=== PATIENT | female | born 1970 | race Caucasian/White ===

== ENCOUNTER 2016-08-20 09:36 | Emergency (ER) | payer MEDICAID ==
[~2016-08-20] VITALS: Ht 165.1 cm; Wt 92.0 kg
[~2016-08-20 09:36] MED LIST: BACT800T5 PO; CEPH500 PO; CEPH500T PO
[2016-08-20 09:37] VITALS: BP 150/80; PULSE 87; RESP 16; TEMP 97.7; O2SAT 98
--- NOTE | 2016-08-20 09:47 | PD ---
HPI . Right ankle cellulitis for 2-3 days Chief Complaint: Skin Problem Time Seen by Provider: 09:47 Travel History International Travel<30 days: No Contact w/Intl Traveler<30days: No Traveled to known affect area: No History of Present Illness HPI 45-year-old female with no past medical history here with complaints of right ankle cellulitis for 2-3 days. Patient tells me she has had intermittent cellulitis here and there in her life and decided to come into the emergency department for further evaluation. She is complaining of a right ankle cellulitis on the medial aspect of his been present for 2-3 days. She thinks it 's possible something may have bitten her, but is uncertain. She denies any fever but admits to intermittent chills. She has no other complaints. She is ambulatory. PFSH Past Medical History Cancer: No Cardiovascular Problems: No Cerebrovascular Accident: Yes Diminished Hearing: No Endocrine: No Genitourinary: No Immune Disorder: No Musculoskeletal: Yes Neurologic: No Psychiatric: No Reproductive: Yes Respiratory: No Integumentary: Yes (CELLULITIS) ?: Not LMP: 3 weeks ago : 2 Para: 2 Past Surgical History Abdominal Surgery: Yes (APPENDECTOMY) Cardiac Surgery: No Ear Surgery: No Endocrine Surgery: No Eye Surgery: No Genitourinary Surgery: No Gynecologic Surgery: No Oral Surgery: No Thoracic Surgery: No Tonsillectomy: Yes Other Surgery: Yes Social History Alcohol Use: No Tobacco Use: Yes Substance Use: No Allergies-Medications (Allergen,Severity, Reaction): Coded Allergies: No Known Allergies (Verified , 08/20/16) Reported Meds & Prescriptions Reported Meds & Active Scripts Active Bactrim DS (Sulfamethoxazole-Trimethoprim) 800-160 Mg Tab 1 Tab PO BID Review of Systems General / Constitutional: No: Fever Eyes: No: Visual changes HENT: No: Headaches Cardiovascular: No: Chest Pain or Discomfort Respiratory: No: Shortness of Breath Gastrointestinal: No: Abdominal Pain Genitourinary: No: Dysuria Musculoskeletal: No: Pain Skin: Positive Other (right ankle redness/ tenderness), No Rash Neurologic: No: Weakness Psychiatric: No: Depression Endocrine: No: Polydipsia Hematologic/Lymphatic: No: Easy Bruising Physical Exam Narrative GENERAL: AAO x 3, no acute distress, Well-nourished, well-developed patient. SKIN: Warm and dry. No visible rashes or bruising. Right medial ankle proximal to the malleolus with a 2.5 cm well-circumscribed area of erythema, and warmth. There is very minimal edema and no abscess formation or drainage. Pedal pulses are intact bilaterally. HEAD: Normocephalic and atraumatic. EYES: No scleral icterus. No injection or drainage. ENT: No nasal drainage noted. Airway patent. NECK: Supple, trachea midline. No JVD. CARDIOVASCULAR: Regular rate and rhythm without murmurs, gallops, or rubs. RESPIRATORY: Breath sounds equal bilaterally. No accessory muscle use. No rhonchi or rales. GASTROINTESTINAL: Abdomen soft, non-tender, nondistended. EXTREMITIES: No cyanosis or edema. Full range of motion bilateral ankle and feet BACK: Nontender without obvious deformity. No CVA tenderness. PSYCH: AAO x 3, normal affect. Data Data Last Documented VS Vital Signs Date Time Temp Pulse Resp B/P Pulse Ox O2 Delivery O2 Flow Rate FiO2 08/20/16 09:37 97.7 87 16 150/80 98 MDM Medical Decision Making Medical Screen Exam Complete: Yes Emergency Medical Condition: Yes Medical Record Reviewed: Yes Differential Diagnosis Cellulitis, less likely abscess, insect bite Narrative Course 45-year-old female with no past medical history here with complaints of right ankle cellulitis for 2-3 days. Patient tells me she has had intermittent cellulitis here and there in her life and decided to come into the emergency department for further evaluation. She is complaining of a right ankle cellulitis on the medial aspect of his been present for 2-3 days. She thinks it 's possible something may have bitten her, but is uncertain. She denies any fever but admits to intermittent chills. She has no other complaints. She is ambulatory. Patient seen and examined. She has a small area of cellulitis on the right medial ankle. I will go ahead and treat her with Bactrim. She's been advised to use Tylenol and Motrin as needed for pain. Follow-up with primary care provider. Patient verbalized understanding of instructions, questions were answered, and thanked me for their care. I advised them if their condition worsens, please return to the nearest emergency room for further care. Diagnosis Primary Impression: Cellulitis Qualified Code: L03.115 - Cellulitis of right lower extremity Patient Instructions: General Instructions Additional Instructions: Mcdonald for worsening signs of infection which include fever, increased redness , increased warmth, purulent drainage, increased swelling or streaking. If any of these develop, please go to the nearest emergency room. Please return to emergency department if your symptoms return or worsen. Follow up with your primary care provider. Take medications as prescribed. Use Tylenol or Motrin as needed for pain. Med/Other Pt SpecificInfo: Prescription(s) given Scripts Sulfamethoxazole-Trimethoprim (Bactrim DS)800-160 Mg Tab1 Tab PO BID #20 TAB Prov:Malik Griffin MD 08/20/16 Disposition: 01 DISCHARGE HOME Condition: Stable Kelsey Churchill August 20, 2016 09:47
[2016-08-20] MEDS ORDERED: BACT800T5 PO (09:50)
== END 2016-08-20 09:58 | disposition home or self-care (01) ==
LOC: NEPK 09:36
DX: L03.115 Cellulitis of right lower limb (principal)
CPT/HCPCS: 99283

== ENCOUNTER 2016-08-25 08:22 | Emergency (ER) | payer MEDICAID, OTHER ==
[~2016-08-25] VITALS: Ht 165.1 cm; Wt 86.0 kg
[~2016-08-25 08:22] MED LIST changes: -CEPH500 PO; -CEPH500T PO
[2016-08-25 08:23] VITALS: BP 186/95; PULSE 117; RESP 17; TEMP 97.7; O2SAT 99
[2016-08-25 08:37] VITALS: BP 190/86; PULSE 110; RESP 20; O2SAT 99
[2016-08-25] MEDS ORDERED: CLINDAMYCIN INJ 900 MG in SODIUM CHLORIDE 0.9% INJ 100 ML IV ONE (08:45)
[2016-08-25] MEDS ORDERED: SODIUM CHLOR 0.9% 1000 ML INJ 1,000 ML IV ONE (08:45)
[2016-08-25] MEDS ORDERED: CLIN1CAP5 PO (08:46)
--- NOTE | 2016-08-25 08:48 | PD ---
HPI Chief Complaint: Skin Problem Time Seen by Provider: 08:31 Travel History International Travel<30 days: No Contact w/Intl Traveler<30days: No Traveled to known affect area: No History of Present Illness HPI 45 yo F right ankle cellulitis for several days. She started Bactrim 5 days ago and the cellulitis has worsened. Initially documented as about 2.5cm area cellulitis. Patient states typically Bactrim DS and Keflex work well for her. She notes a constant pain. It's worse with palpation and walking. Subjective fever chills reported. Similar episodes have occurred several times in the past few years evidently all of which was precipitated by a brown recluse bite. Location skin. PFSH Past Medical History Cancer: No Cardiovascular Problems: No Cerebrovascular Accident: Yes Diminished Hearing: No Endocrine: No Genitourinary: No Immune Disorder: No Musculoskeletal: Yes Neurologic: No Psychiatric: No Reproductive: Yes Respiratory: No Integumentary: Yes (CELLULITIS) ?: Not LMP: 07/2016 : 2 Para: 2 Past Surgical History Abdominal Surgery: Yes (APPENDECTOMY) Cardiac Surgery: No Ear Surgery: No Endocrine Surgery: No Eye Surgery: No Genitourinary Surgery: No Gynecologic Surgery: No Oral Surgery: No Thoracic Surgery: No Tonsillectomy: Yes Other Surgery: Yes Social History Alcohol Use: No Tobacco Use: Yes Substance Use: No Allergies-Medications (Allergen,Severity, Reaction): Coded Allergies: No Known Allergies (Verified , 08/25/16) Reported Meds & Prescriptions Reported Meds & Active Scripts Active Bactrim DS (Sulfamethoxazole-Trimethoprim) 800-160 Mg Tab 1 Tab PO BID Review of Systems Except as stated in HPI: all other systems reviewed are Neg General / Constitutional: Positive: Fever (subjective), Chills (subjective) Physical Exam Narrative GENERAL: 45-year-old female pleasant no acute distress SKIN: Focused skin assessment warm/dry. In the region of the right ankle there is circumferential erythema with extension to the dorsal aspect of the foot as well as minimal extension proximally, a few centimeters above the ankle. No fluctuance. No crepitus. HEAD: Atraumatic. Normocephalic. EYES: Pupils equal and round. No scleral icterus. No injection or drainage. ENT: No nasal bleeding or discharge. Mucous membranes pink and moist. NECK: Trachea midline. No JVD. CARDIOVASCULAR: Regular rate and rhythm. No murmur appreciated. RESPIRATORY: No accessory muscle use. Clear to auscultation. Breath sounds equal bilaterally. GASTROINTESTINAL: Abdomen soft, non-tender, nondistended. Hepatic and splenic margins not palpable. MUSCULOSKELETAL: No obvious deformities. No clubbing. No cyanosis. No edema. NEUROLOGICAL: Awake and alert. No obvious cranial nerve deficits. Motor grossly within normal limits. Normal speech. PSYCHIATRIC: Appropriate mood and affect; insight and judgment normal. Data Data Last Documented VS Vital Signs Date Time Temp Pulse Resp B/P Pulse Ox O2 Delivery O2 Flow Rate FiO2 08/25/16 08:37 110 20 190/86 99 Room Air 08/25/16 08:23 97.7 Vital signs reviewed, heart rate approximately 100 at time of assessment. Orders Iv Access Insert/Monitor (08/25/16 08:41) Clindamycin Inj (Cleocin Inj) (08/25/16 08:45) Ns (Bolus) Inj (08/25/16 08:45) MDM Medical Decision Making Medical Screen Exam Complete: Yes Emergency Medical Condition: Yes Medical Record Reviewed: Yes Differential Diagnosis Cellulitis, multidrug resistant organism cellulitis, sepsis, abscess, necrotizing fasciitis, septic arthritis Narrative Course We'll treat the patient with clindamycin. Return precautions discussed. Diagnosis Primary Impression: Cellulitis Qualified Code: L03.115 - Cellulitis of right lower extremity Referrals: Primary Care Physician 2 days Additional Instructions: You have a choice when it comes to health care, and we are glad that you chose [facility]. Hopefully, we have met your expectations on today's visit. You are welcome to return to [facility] at any time, as we are committed to meeting the health care needs of our community. PLEASE STOP TAKING BACTRIM AND START THE CLINDAMYCIN PRESCRIBED STARTING WITH ONE 450MG DOSE PRIOR TO BEDTIME AND RESUMING TOMORROW WITH 450MG EVERY 8 HOURS. Med/Other Pt SpecificInfo: Prescription(s) given Scripts Clindamycin 150 Mg [id number] Mg PO Q8HR 14 Days Ref 0 Prov:Sharif Bettencourt MD 08/25/16 Disposition: 01 DISCHARGE HOME Condition: Stable Sharif Bettencourt MD August 25, 2016 08:48
[2016-08-25] MEDS ORDERED: TRAM50TA PO (09:36)
== END 2016-08-25 12:01 | disposition home or self-care (01) ==
LOC: NEPE 08:22
DX: L03.115 Cellulitis of right lower limb (principal)
CPT/HCPCS: 96361; 96365; 99284; J7030

== ENCOUNTER 2016-08-31 08:58 | Inpatient (IN) | payer MEDICAID, OTHER ==
[~2016-08-31] VITALS: Ht 167.6 cm; Wt 97.4 kg
[~2016-08-31 08:58] MED LIST changes: +CLIN1CAP5 PO; +TRAM50TA PO
[2016-08-31 08:59] VITALS: BP 140/78; PULSE 102; RESP 20; TEMP 99; O2SAT 98
--- NOTE | 2016-08-31 10:07 | PD ---
HPI Chief Complaint: Edema Time Seen by Provider: 10:00 Travel History International Travel<30 days: No Contact w/Intl Traveler<30days: No Traveled to known affect area: No History of Present Illness HPI This is a 45-year-old female who has a history of recurrent right lower extremity infections that she reports stems from a spider bite 7 years ago, who presents today with complaints of worsening redness swelling and warmth. The patient was seen twice here. She was first given oral antibiotics. She states that after the oral antibiotics failed and she had increased redness at that time, she came back and at that time she was given a dose of clindamycin times one dose I V and then discharged with oral clindamycin. She states that she's had increased redness and warmth since then. She reports subjective fevers and chills. She denies any nausea vomiting diarrhea. There are no other reports/ symptoms on my examination. PFSH Past Medical History Cancer: No Cardiovascular Problems: No Cerebrovascular Accident: Yes Diminished Hearing: No Endocrine: No Genitourinary: No Immune Disorder: No Musculoskeletal: Yes Neurologic: No Psychiatric: No Reproductive: Yes Respiratory: No Integumentary: Yes (CELLULITIS) : 2 Para: 2 Past Surgical History Abdominal Surgery: Yes (APPENDECTOMY) Cardiac Surgery: No Ear Surgery: No Endocrine Surgery: No Eye Surgery: No Genitourinary Surgery: No Gynecologic Surgery: No Oral Surgery: No Thoracic Surgery: No Tonsillectomy: Yes Other Surgery: Yes Social History Alcohol Use: No Tobacco Use: Yes Substance Use: No Allergies-Medications (Allergen,Severity, Reaction): Coded Allergies: No Known Allergies (Verified , 08/31/16) Reported Meds & Prescriptions Reported Meds & Active Scripts Active Tramadol (Tramadol HCl) 50 Mg Tab 50 Mg PO Q8H PRN Clindamycin (Clindamycin HCl) 150 Mg Cap 450 Mg PO Q8HR 14 Days Review of Systems Except as stated in HPI: all other systems reviewed are Neg General / Constitutional: Positive: Fever, Chills (subjective objective) HENT: No: Headaches, Lightheadedness Cardiovascular: No: Chest Pain or Discomfort, Palpitations Respiratory: No: Cough, Shortness of Breath Gastrointestinal: No: Nausea, Vomiting, Abdominal Pain Genitourinary: No: Urgency, Frequency, Dysuria Musculoskeletal: Positive: Limited ROM (secondary to pain), Edema (right lower extremity and foot.), Pain (and redness to right lower extremity and foot.) Skin: Positive Other (cellulitic rash to right lower extremity and foot) Physical Exam Narrative GENERAL: Well-nourished, well-developed patient, in no acute respiratory distress. SKIN: Focused skin assessment warm/dry. HEAD: Normocephalic/atraumatic. EYES: No scleral icterus. No injection or drainage. NECK: Supple, trachea midline. CARDIOVASCULAR: Regular rate and rhythm without murmurs, gallops, or rubs. RESPIRATORY: Breath sounds equal bilaterally. No accessory muscle use. GASTROINTESTINAL: Abdomen soft, non-tender, nondistended. MUSCULOSKELETAL: No cyanosis, or edema. BACK: Nontender without obvious deformity. No CVA tenderness. Data Data Last Documented VS Vital Signs Date Time Temp Pulse Resp B/P Pulse Ox O2 Delivery O2 Flow Rate FiO2 08/31/16 08:59 99.0 102 20 140/78 98 Room Air Orders Basic Metabolic Panel (Bmp) (08/31/16 10:01) Complete Blood Count With Diff (08/31/16 10:01) Blood Culture (08/31/16 10:01) Iv Access Insert/Monitor (08/31/16 10:01) Ketorolac Inj (Toradol Inj) (08/31/16 10:15) Vancomycin Inj (Vancomycin Inj) (08/31/16 10:15) Us Leg Venous Doppler (08/31/16 10:08) Admit To Inpatient (08/31/16 ) Code Status (08/31/16 10:26) Vital Signs (Adult) Q4H (08/31/16 10:26) Activity Oob With Assistance (08/31/16 10:26) Diet Heart Healthy (08/31/16 Lunch) Sodium Chloride 0.9% Flush (Ns Flush) (08/31/16 10:30) Sodium Chloride 0.9% Flush (Ns Flush) (08/31/16 21:00) Acetaminophen (Tylenol) (08/31/16 10:30) Ondansetron Inj (Zofran Inj) (08/31/16 10:30) Temazepam (Restoril) (08/31/16 10:30) Comprehensive Metabolic Panel (09/01/16 06:00) Complete Blood Count With Diff (09/01/16 06:00) Case Management Consult (08/31/16 10:26) Heparin Inj (Heparin Inj) (08/31/16 10:30) Acetaminophen (Tylenol) (08/31/16 10:30) Naloxone Inj (Narcan Inj) (08/31/16 10:30) Inpatient Certification (08/31/16 ) [facility] Medical Decision Making Medical Screen Exam Complete: Yes Emergency Medical Condition: Yes Differential Diagnosis Failed outpatient antibiotics versus DVT versus vasculitis. Narrative Course 45-year-old female presents with worsening right lower extremity cellulitis. The patient was seen and treated as an outpatient twice. She is failed outpatient by mouth antibiotics. She'll be started on vancomycin. Labs are pending at this time however this does not change the fact that she'll need admission. I discussed the case with Dr. Atul Herrmann, [facility] hospitalist, who agrees with the admission. I did order an ultrasound of the right lower extremity to rule out DVT as this had not been done at the previous 2 visits. While I doubt there is a DVT, it is important to have this performed for completeness. Sepsis Criteria SIRS Criteria (2 or more): Heart rate over 90 Sepsis Criteria (SIRS+source): Infect source susp/known Diagnosis Primary Impression: right lower extremity cellulitis, failed outpatient treatment Admitting Information Admitting Physician Requests: Admit Lit Romero MD August 31, 2016 10:07
[2016-08-31] MEDS ORDERED: VANCOMYCIN INJ 1,000 MG in SODIUM CHLOR 0.9% 250 ML INJ 250 ML IV ONE (10:15)
[2016-08-31] MEDS ORDERED: KETOROLAC TROMETHAMINE 30 MG/ML (IVP) VIAL IVP ONE (10:15)
[2016-08-31] MEDS ORDERED: NALOXONE HCL 0.4 MG/ML AMP IV PRN (10:30)
[2016-08-31] MEDS ORDERED: SODIUM CHLORIDE 0.9% FLUSH 10 ML FLUSH IV FLUSH PRN (10:30)
[2016-08-31] MEDS ORDERED: TEMAZEPAM 15 MG CAP PO PRN (10:30)
[2016-08-31] MEDS ORDERED: ONDANSETRON HCL 4 MG/2 ML VIAL IVP PRN (10:30)
[2016-08-31] MEDS ORDERED: ACETAMINOPHEN 325 MG TAB PO PRN ×2 (10:30)
[2016-08-31 10:36] LABS: AUTOMATED NEUTROPHIL # 4.9 TH/MM3 (1.8-7.7); BASOPHIL # 0.1 TH/MM3 (0-0.2); BASOPHIL % 0.7 % (0.0-2.0); EOSINOPHIL # 0.1 TH/MM3 (0-0.4); EOSINOPHIL % 1.5 % (0.0-4.0); HEMATOCRIT 33.3 % (35.0-46.0); HEMO FLAGS DIFF FINAL; LYMPH % 20.9 % (9.0-44.0); LYMPHOCYTE # 1.5 TH/MM3 (1.0-4.8); MEAN CELL VOLUME 76.6 FL (80.0-100.0); MEAN CORPUSCULAR HGB CONC 33.9 % (32.0-36.0); MONO % 10.1 % (0.0-8.0); NEUT % 66.8 % (16.0-70.0); PLATELET COUNT 343 TH/MM3 (150-450); RED BLOOD COUNT 4.35 MIL/MM3 (4.00-5.30); RED CELL DISTRIBUTION WIDTH 14.6 % (11.6-17.2); WHITE BLOOD COUNT 7.4 TH/MM3 (4.0-11.0)
[2016-08-31 10:57] LABS: BICARBONATE 25.2 MEQ/L (21.0-32.0); POTASSIUM 3.7 MEQ/L (3.5-5.1)
[2016-08-31 11:00] VITALS: BP 131/72; PULSE 94; RESP 16; O2SAT 98
[2016-08-31] MEDS: HEPARIN SODIUM - SQ 10,000 UNITS/ML VIAL SQ SCH ×2 (11:22→23:49)
--- NOTE | 2016-08-31 11:22 | RADRPT ---
EXAM DATE/TIME: 08/31/2016 10:26 [facility] COMPARISON: No previous studies available for comparison. INDICATIONS : Right leg edema. MEDICAL HISTORY : CVA. Cellulitis. SURGICAL HISTORY : Tonsillectomy. Appendectomy. ENCOUNTER: Initial ACUITY: >1 year PAIN SCORE: 10/10 LOCATION: Right leg. TECHNIQUE: Venous ultrasound of the leg was performed from the inguinal ligament to the proximal calf. Real-pravin e, color Doppler and spectral tracing, compression and augmentation techniques were used. FINDINGS: There is normal compressibility of the deep venous system from the inguinal region to the proximal ca lf. No echogenic clot is seen in the lumen of the common femoral, femoral, popliteal, and posterior tibial veins. There is a normal response of the venous system to proximal and distal augmentation an d respiration. CONCLUSION: 1. No DVT identified. Sharif Lazcano MD on August 31, 2016 at 11:20 Board Certified Radiologist. This report was verified electronically.
[2016-08-31 12:00] VITALS: BP 138/71; PULSE 80; RESP 18; TEMP 97.6; O2SAT 99
--- NOTE | 2016-08-31 14:12 | HHI.HP ---
[facility] No Primary Care Physician Admission Diagnosis right lower ext cellulitis failed outpt treatment Diagnoses: (1) Cellulitis of right lower extremity (2) Failure of outpatient treatment (3) Normochromic normocytic anemia (4) IFG (impaired fasting glucose) Chief Complaint: Right lower extremity erythema and pain Travel History International Travel<30 Days: No Contact w/Intl Traveler <30 Da: No Traveled to Known Affected Are: No History of Present Illness 45 year-old female with no significant past medical history presented to the ED for evaluation of failed outpatient therapy for right lower extremity cellulitis. Patient was initially seen in the ED on 08/20/16 Observing at 34 days history of right lower stomach erythema and pain which was rated at a time 6/10 in intensity, she was discharged home on Bactrim 7 days patient completed without any significant improvement. She will return to the ED on 08/25/16 and was discharged home on clindamycin for total 7 days. However patient states after completing her therapy she has had no improvement and reports significant right lower extremity pain and worsening erythema. Vision also reported some complaint of chills and subjective fever. She denies any GI bleed Review of Systems Other 12 Systems reviewed and are negative except for the one mentioned in the history of present illness Past Family Social History Past Medical History Integumentary: Yes (CELLULITIS) Past Surgical History APPENDECTOMY Reported Medications Tramadol (Tramadol HCl) 50 Mg Tab 50 Mg PO Q8H PRN Clindamycin (Clindamycin HCl) 150 Mg Cap 450 Mg PO Q8HR 14 Days Allergies: Coded Allergies: No Known Allergies (Verified , 08/31/16) Family History Father with a history of heart disease, diabetes. Mother with a history of ovarian cancer Social History Alcohol Use: No Tobacco Use: No Substance Use: No Physical Exam Vital Signs Vital Signs Date Time Temp Pulse Resp B/P Pulse Ox O2 Delivery O2 Flow Rate FiO2 08/31/16 11:00 94 16 131/72 98 Room Air 08/31/16 08:59 99.0 102 20 140/78 98 Room Air Physical Exam GENERAL: This is a well-nourished, well-developed patient, in no apparent distress. SKIN: No rashes, ecchymoses or lesions. Cool and dry. In the region of the right ankle there is circumferential erythema with extension to the dorsal aspect of the foot as well as extension proximally. HEAD: Atraumatic. Normocephalic. No temporal or scalp tenderness. EYES: Pupils equal round and reactive. Extraocular motions intact. No scleral icterus. No injection or drainage. ENT: Nose without bleeding, purulent drainage or septal hematoma. Throat without erythema, tonsillar hypertrophy or exudate. Uvula midline. Airway patent. NECK: Trachea midline. No JVD or lymphadenopathy. Supple, nontender, no meningeal signs. CARDIOVASCULAR: Regular rate and rhythm without murmurs, gallops, or rubs. RESPIRATORY: Clear to auscultation. Breath sounds equal bilaterally. No wheezes , rales, or rhonchi. GASTROINTESTINAL: Abdomen soft, non-tender, nondistended. No hepato-splenomegaly , or palpable masses. No guarding. MUSCULOSKELETAL: Extremities without clubbing, cyanosis, or edema. No joint tenderness, effusion, or edema noted. No calf tenderness. Negative Homans sign bilaterally. NEUROLOGICAL: Awake and alert. Cranial nerves II through XII intact. Motor and sensory grossly within normal limits. Five out of 5 muscle strength in all muscle groups. Normal speech. Laboratory Laboratory Tests Test 08/31/16 10:10 White Blood Count 7.4 Red Blood Count 4.35 Hemoglobin 11.3 Hematocrit 33.3 Mean Corpuscular Volume 76.6 Mean Corpuscular Hemoglobin 26.0 Mean Corpuscular Hemoglobin 33.9 Concent Red Cell Distribution Width 14.6 Platelet Count 343 Mean Platelet Volume 8.4 Neutrophils (%) (Auto) 66.8 Lymphocytes (%) (Auto) 20.9 Monocytes (%) (Auto) 10.1 Eosinophils (%) (Auto) 1.5 Basophils (%) (Auto) 0.7 Neutrophils # (Auto) 4.9 Lymphocytes # (Auto) 1.5 Monocytes # (Auto) 0.7 Eosinophils # (Auto) 0.1 Basophils # (Auto) 0.1 CBC Comment DIFF FINAL Differential Comment Sodium Level 134 Potassium Level 3.7 Chloride Level 98 Carbon Dioxide Level 25.2 Anion Gap 11 Blood Urea Nitrogen 10 Creatinine 0.75 Estimat Glomerular Filtration 83 Rate Random Glucose 123 Calcium Level 9.5 Date/Time Procedure Status Source Growth 08/31/16 10:20 Aerobic Blood Culture Received Blood Peripheral Pending 08/31/16 10:20 Anaerobic Blood Culture Received Blood Peripheral Pending Result Diagram: 08/31/16 1010 08/31/16 1010 Imaging Last Impressions Lower Extremity Ultrasound 08/31/16 1008 Signed Impressions: Service Date/Time: Wednesday, August 31, 2016 10:26 - CONCLUSION: 1. No DVT identified. Sharif Lazcano MD Assessment and Plan Problem List: (1) Cellulitis of right lower extremity ICD Code: L03.115 Status: Acute (2) Failure of outpatient treatment ICD Code: Z78.9 Status: Acute (3) IFG (impaired fasting glucose) ICD Code: R73.01 Status: Acute (4) Normochromic normocytic anemia ICD Code: D64.9 Status: Acute Assessment and Plan 45-year-old female with Cellulitis of right lower extremity Failure of outpatient therapy DVT ruled out with Doppler Status post vancomycin 1 in ED, continue vancomycin and add Rocephin pending culture Pain management accordingly Normochromic normocytic anemia h/H is stable, check iron study and treat accordingly Impaired fasting glucose No known history of diabetes type 2, check A1c and treat accordingly DVT prophylaxis Subcutaneous heparin Code Status Full code Discussed Condition With Patient, father, ED physician Physician Certification 2 Midnight Certification Type: Admission for Inpatient Services Order for Inpatient Services The services are ordered in accordance with Medicare regulations or non- Medicare payer requirements, as applicable. In the case of services not specified as inpatient-only, they are appropriately provided as inpatient services in accordance with the 2-midnight benchmark. Estimated LOS (days): 2 days is the estimated time the patient will need to remain in the hospital, assuming treatment plan goals are met and no additional complications. Post-Hospital Plan: Not yet determined Atul Herrmann MD August 31, 2016 14:12
[2016-08-31] MEDS ORDERED: Vancomycin Consult Pharmacy 1 EA OTHER SCH (14:30)
[2016-08-31 15:29] LABS: TRANSFERRIN IRON PROFILE 222 MG/DL (200-360)
[2016-08-31] MEDS: cefTRIAXone INJ 1,000 MG in SODIUM CHLORIDE 0.9% INJ 100 ML IV SCH (15:29)
[2016-08-31 16:00] VITALS: BP 117/69; PULSE 61; RESP 18; TEMP 99.3; O2SAT 99
[2016-08-31] MEDS ORDERED: KETOROLAC TROMETHAMINE 30 MG/ML (IVP) VIAL IV PUSH PRN (16:00)
[2016-08-31] MEDS: VANCOMYCIN 1,500 MG/NS 500 ML IV SCH ×2 (18:04)
[2016-08-31 20:27] VITALS: BP 123/74; PULSE 96; RESP 18; TEMP 100.8; O2SAT 98
[2016-08-31] MEDS: LACTOBACILLUS ACIDOPHILUS TAB PO SCH (20:56)
[2016-08-31] MEDS: SODIUM CHLORIDE 0.9% FLUSH 10 ML FLUSH IV FLUSH SCH (20:56)
[2016-09-01 00:19] VITALS: BP 119/74; PULSE 99; RESP 16; TEMP 100.3; O2SAT 96
[2016-09-01 04:16] VITALS: BP 134/84; PULSE 92; RESP 18; TEMP 100.9; O2SAT 97
[2016-09-01] MEDS: VANCOMYCIN 1,500 MG/NS 500 ML IV SCH ×4 (05:23→17:59)
[2016-09-01 07:21] LABS: AUTOMATED NEUTROPHIL # 4.5 TH/MM3 (1.8-7.7); BASOPHIL % 0.6 % (0.0-2.0); EOSINOPHIL # 0.1 TH/MM3 (0-0.4); EOSINOPHIL % 1.1 % (0.0-4.0); HEMATOCRIT 32.8 % (35.0-46.0); HEMO FLAGS DIFF FINAL; LYMPH % 24.2 % (9.0-44.0); LYMPHOCYTE # 1.7 TH/MM3 (1.0-4.8); MEAN CELL VOLUME 77.8 FL (80.0-100.0); MEAN CORPUSCULAR HEMOGLOBIN 26.3 PG (27.0-34.0); MEAN CORPUSCULAR HGB CONC 33.8 % (32.0-36.0); MONO % 8.7 % (0.0-8.0); NEUT % 65.4 % (16.0-70.0); PLATELET COUNT 361 TH/MM3 (150-450); RED BLOOD COUNT 4.21 MIL/MM3 (4.00-5.30); RED CELL DISTRIBUTION WIDTH 14.4 % (11.6-17.2); WHITE BLOOD COUNT 6.8 TH/MM3 (4.0-11.0)
[2016-09-01 07:44] LABS: ALKALINE PHOSPHATASE 96 U/L (45-117); ALT (GPT) 30 U/L (10-53); ANION GAP 9 MEQ/L (5-15); AST (GOT) 20 U/L (15-37); BICARBONATE 26.9 MEQ/L (21.0-32.0); BLOOD UREA NITROGEN 10 MG/DL (7-18); CHLORIDE 99 MEQ/L (98-107); GLOMERULAR FILTRATION RATE 90 ML/MIN (>89); POTASSIUM 3.7 MEQ/L (3.5-5.1); SODIUM (NA) 135 MEQ/L (136-145); TOTAL BILIRUBIN ADULT 0.6 MG/DL (0.2-1.0)
[2016-09-01 08:00] VITALS: BP 133/77; PULSE 90; RESP 18; TEMP 98.2; O2SAT 97
[2016-09-01] MEDS: LACTOBACILLUS ACIDOPHILUS TAB PO SCH ×2 (08:10→21:39)
[2016-09-01 08:32] LABS: HEMOGLOBIN A1a 1.1 %; HEMOGLOBIN A1b 1.7 %; HEMOGLOBIN Ao 85.5 %; HEMOGLOBIN LA1C 1.9 %; HEMOGLOBIN P3 3.7 %
[2016-09-01] MEDS ORDERED: VANCOMYCIN INJ 1,250 MG in SODIUM CHLOR 0.9% 250 ML INJ 250 ML IV SCH (09:00)
[2016-09-01] MEDS: SODIUM CHLORIDE 0.9% FLUSH 10 ML FLUSH IV FLUSH SCH ×2 (09:00→21:39)
--- NOTE | 2016-09-01 09:03 | HHI.PR ---
Subjective Remarks Follow-up right lower extremity cellulitis 09/01/16-patient seen and examined, reports improvement of right lower extremity pain as she was able to put more weight on his. Spiking fevers with MAXIMUM TEMPERATURE 100.4 at 4 AM however denies any chills overnight Objective Vitals Vital Signs Date Time Temp Pulse Resp B/P Pulse Ox O2 Delivery O2 Flow Rate FiO2 09/01/16 04:16 100.9 92 18 134/84 97 09/01/16 00:19 100.3 99 16 119/74 96 08/31/16 20:27 100.8 96 18 123/74 98 08/31/16 16:00 99.3 61 18 117/69 99 08/31/16 12:00 97.6 80 18 138/71 99 08/31/16 11:00 94 16 131/72 98 Room Air I/O 08/31/16 08/31/16 08/31/16 09/01/16 09/01/16 09/01/16 07:00 15:00 23:00 07:00 15:00 23:00 Intake Total 248 ml Balance 248 ml Intake IV Total 248 ml # Voids 2 2 # Bowel Movements 0 0 Result Diagram: 09/01/16 0630 09/01/16 0630 Imaging Last Impressions Lower Extremity Ultrasound 08/31/16 1008 Signed Impressions: Service Date/Time: Wednesday, August 31, 2016 10:26 - CONCLUSION: 1. No DVT identified. Sharif Lazcano MD Objective Remarks GENERAL: NAD SKIN: Warm and dry. Improving right lower extremity redness and erythema HEAD: Normocephalic. EYES: No scleral icterus. No injection or drainage. NECK: Supple, trachea midline. No JVD or lymphadenopathy. CARDIOVASCULAR: Regular rate and rhythm without murmurs, gallops, or rubs. RESPIRATORY: Breath sounds equal bilaterally. No accessory muscle use. GASTROINTESTINAL: Abdomen soft, non-tender, nondistended. MUSCULOSKELETAL: No cyanosis, or edema. BACK: Nontender without obvious deformity. No CVA tenderness. A/P Problem List: (1) Cellulitis of right lower extremity ICD Code: L03.115 Status: Acute (2) Failure of outpatient treatment ICD Code: Z78.9 Status: Acute (3) Normochromic normocytic anemia ICD Code: D64.9 Status: Acute (4) IFG (impaired fasting glucose) ICD Code: R73.01 Status: Acute Assessment and Plan 45-year-old female with Cellulitis of right lower extremity Failure of outpatient therapy DVT ruled out with Doppler Status post vancomycin 1 in ED, continue vancomycin and add Rocephin pending culture Pain management accordingly Normochromic normocytic anemia Iron deficiency anemia Start ferrous sulfate 325 mg daily Impaired fasting glucose No known history of diabetes type 2, A1c pending and treat accordingly DVT prophylaxis Subcutaneous heparin Atul Herrmann MD September 01, 2016 09:03
[2016-09-01] MEDS: HEPARIN SODIUM - SQ 10,000 UNITS/ML VIAL SQ SCH (11:28)
[2016-09-01 12:00] VITALS: BP 129/82; PULSE 95; RESP 18; TEMP 98.4; O2SAT 97
[2016-09-01] MEDS: cefTRIAXone INJ 1,000 MG in SODIUM CHLORIDE 0.9% INJ 100 ML IV SCH (15:42)
[2016-09-01 16:00] VITALS: BP 101/61; PULSE 86; RESP 18; TEMP 97.7; O2SAT 98
[2016-09-01 20:18] VITALS: BP 116/69; PULSE 95; RESP 20; TEMP 97.8; O2SAT 98
[2016-09-02] MEDS: HEPARIN SODIUM - SQ 10,000 UNITS/ML VIAL SQ SCH ×3 (00:21→23:56)
[2016-09-02 00:53] VITALS: BP 127/69; PULSE 88; RESP 20; TEMP 97.5; O2SAT 99
[2016-09-02] MEDS: VANCOMYCIN 1,500 MG/NS 500 ML IV SCH ×4 (05:20→17:20)
[2016-09-02 05:31] VITALS: BP 142/72; PULSE 90; RESP 20; TEMP 96.9; O2SAT 98
[2016-09-02] MEDS ORDERED: PHARMACY ORDERED LAB ONE (05:45)
[2016-09-02 08:17] VITALS: BP 121/65; PULSE 86; RESP 20; TEMP 98.5; O2SAT 97
--- NOTE | 2016-09-02 08:49 | HHI.PR ---
Subjective Remarks Follow-up right lower extremity cellulitis 09/01/16-patient seen and examined, reports improvement of right lower extremity pain as she was able to put more weight on his. Spiking fevers with MAXIMUM TEMPERATURE 100.4 at 4 AM however denies any chills overnight 09/02/16patient seen and examined, currently afebrile, reported improvement of right lower extremity erythema, swelling and pain. Culture negative to date Objective Vitals Vital Signs Date Time Temp Pulse Resp B/P Pulse Ox O2 Delivery O2 Flow Rate FiO2 09/02/16 08:17 98.5 86 20 121/65 97 09/02/16 05:31 96.9 90 20 142/72 98 09/02/16 00:53 97.5 88 20 127/69 99 09/01/16 20:18 97.8 95 20 116/69 98 09/01/16 16:00 97.7 86 18 101/61 98 09/01/16 12:00 98.4 95 18 129/82 97 I/O 09/01/16 09/01/16 09/01/16 09/02/16 09/02/16 09/02/16 07:00 15:00 23:00 07:00 15:00 23:00 # Voids 2 4 # Bowel Movements 0 1 Result Diagram: 09/01/16 0630 09/01/16 0630 Objective Remarks GENERAL: NAD SKIN: Warm and dry. Improving right lower extremity redness and erythema HEAD: Normocephalic. EYES: No scleral icterus. No injection or drainage. NECK: Supple, trachea midline. No JVD or lymphadenopathy. CARDIOVASCULAR: Regular rate and rhythm without murmurs, gallops, or rubs. RESPIRATORY: Breath sounds equal bilaterally. No accessory muscle use. GASTROINTESTINAL: Abdomen soft, non-tender, nondistended. MUSCULOSKELETAL: No cyanosis, or edema. BACK: Nontender without obvious deformity. No CVA tenderness. Procedures None A/P Problem List: (1) Cellulitis of right lower extremity ICD Code: L03.115 Status: Acute (2) Failure of outpatient treatment ICD Code: Z78.9 Status: Acute (3) Normochromic normocytic anemia ICD Code: D64.9 Status: Acute (4) IFG (impaired fasting glucose) ICD Code: R73.01 Status: Acute Assessment and Plan 45-year-old female with Cellulitis of right lower extremity-improving Failure of outpatient therapy DVT ruled out with Doppler continue vancomycin and Rocephin as blood culture negative to date Pain management accordingly Normochromic normocytic anemia Iron deficiency anemia ferrous sulfate 325 mg daily Impaired fasting glucose No known history of diabetes type 2, A1c 5.7 DVT prophylaxis Subcutaneous heparin Discharge Planning Likely discharge 09/03/16 Atul Herrmann MD September 02, 2016 08:49
[2016-09-02] MEDS: SODIUM CHLORIDE 0.9% FLUSH 10 ML FLUSH IV FLUSH SCH ×2 (09:00→20:31)
[2016-09-02] MEDS: FERROUS SULFATE 325 MG (65 MG ELEMENTAL IRON) TAB PO SCH (09:00)
[2016-09-02] MEDS ORDERED: KETOROLAC TROMETHAMINE 10 MG TAB PO PRN (09:00)
[2016-09-02] MEDS: LACTOBACILLUS ACIDOPHILUS TAB PO SCH ×2 (09:07→20:30)
[2016-09-02 12:12] VITALS: BP 143/82; PULSE 97; RESP 20; TEMP 98.7; O2SAT 97
[2016-09-02] MEDS: cefTRIAXone INJ 1,000 MG in SODIUM CHLORIDE 0.9% INJ 100 ML IV SCH (15:36)
[2016-09-02 16:00] VITALS: BP 117/77; PULSE 81; RESP 20; TEMP 97.7; O2SAT 97
[2016-09-02 20:00] VITALS: BP 133/78; PULSE 93; RESP 21; TEMP 98.9; O2SAT 97
[2016-09-03] VITALS: BP 110/74; PULSE 79; RESP 20; TEMP 97.3; O2SAT 98
[2016-09-03 04:00] VITALS: BP 117/73; PULSE 89; RESP 20; TEMP 98.4; O2SAT 97
[2016-09-03] MEDS: VANCOMYCIN 1,500 MG/NS 500 ML IV SCH ×2 (06:34)
[2016-09-03 08:00] VITALS: BP 130/78; PULSE 84; RESP 17; TEMP 97.9; O2SAT 96
[2016-09-03] MEDS: SODIUM CHLORIDE 0.9% FLUSH 10 ML FLUSH IV FLUSH SCH (08:38)
[2016-09-03] MEDS: LACTOBACILLUS ACIDOPHILUS TAB PO SCH (08:38)
[2016-09-03] MEDS: FERROUS SULFATE 325 MG (65 MG ELEMENTAL IRON) TAB PO SCH (08:38)
[2016-09-03 11:45] VITALS: BP 138/75; PULSE 81; RESP 17; TEMP 96.2; O2SAT 96
--- NOTE | 2016-09-03 11:45 | HHI.PR ---
Subjective Remarks Follow-up right lower extremity cellulitis 09/01/16-patient seen and examined, reports improvement of right lower extremity pain as she was able to put more weight on his. Spiking fevers with MAXIMUM TEMPERATURE 100.4 at 4 AM however denies any chills overnight 09/02/16patient seen and examined, currently afebrile, reported improvement of right lower extremity erythema, swelling and pain. Culture negative to date 09/03/16-patient seen and examined; stable and afebrile. Denies any right lower extremity pain. Looking for discharge home today. Objective Vitals Vital Signs Date Time Temp Pulse Resp B/P Pulse Ox O2 Delivery O2 Flow Rate FiO2 09/03/16 08:00 97.9 84 17 130/78 96 09/03/16 04:00 98.4 89 20 117/73 97 09/03/16 00:00 97.3 79 20 110/74 98 09/02/16 20:00 98.9 93 21 133/78 97 09/02/16 16:00 97.7 81 20 117/77 97 09/02/16 12:12 98.7 97 20 143/82 97 I/O 09/02/16 09/02/16 09/02/16 09/03/16 09/03/16 09/03/16 07:00 15:00 23:00 07:00 15:00 23:00 Intake Total 240 ml 240 ml Balance 240 ml 240 ml Intake Oral 240 ml 240 ml # Voids 4 6 1 1 # Bowel Movements 1 2 0 0 Result Diagram: 09/01/16 0630 09/03/16 0835 Objective Remarks GENERAL: NAD SKIN: Warm and dry. Improving right lower extremity redness and erythema HEAD: Normocephalic. EYES: No scleral icterus. No injection or drainage. NECK: Supple, trachea midline. No JVD or lymphadenopathy. CARDIOVASCULAR: Regular rate and rhythm without murmurs, gallops, or rubs. RESPIRATORY: Breath sounds equal bilaterally. No accessory muscle use. GASTROINTESTINAL: Abdomen soft, non-tender, nondistended. MUSCULOSKELETAL: No cyanosis, or edema. BACK: Nontender without obvious deformity. No CVA tenderness. Procedures None A/P Problem List: (1) Cellulitis of right lower extremity ICD Code: L03.115 Status: Acute (2) Failure of outpatient treatment ICD Code: Z78.9 Status: Acute (3) Normochromic normocytic anemia ICD Code: D64.9 Status: Acute (4) IFG (impaired fasting glucose) ICD Code: R73.01 Status: Acute Assessment and Plan 45-year-old female with Cellulitis of right lower extremity-improving Failure of outpatient therapy -DVT ruled out with Doppler - continue vancomycin and Rocephin as blood culture negative to date. However will discharge home on by mouth antibiotics. Patient has been advised to resume and finish her clindamycin. -Pain management accordingly Normochromic normocytic anemia Iron deficiency anemia ferrous sulfate 325 mg daily Impaired fasting glucose No known history of diabetes type 2, A1c 5.7 DVT prophylaxis Subcutaneous heparin Discharge Planning Likely discharge 09/03/16 Atul Herrmann MD September 03, 2016 11:45
[2016-09-03] MEDS ORDERED: FERR325T PO (11:47)
[2016-09-03] MEDS ORDERED: LACT PO (11:47)
--- NOTE | 2016-09-03 11:50 | HHI.DS ---
Discharge Summary Admission Date August 31, 2016 at 10:32 Discharge Date: September 03, 2016 Admitting Diagnosis right lower ext cellulitis failed outpt treatment (1) Cellulitis of right lower extremity ICD Code: L03.115 (2) Failure of outpatient treatment ICD Code: Z78.9 (3) Normochromic normocytic anemia ICD Code: D64.9 (4) IFG (impaired fasting glucose) ICD Code: R73.01 Procedures None Brief History - From Admission 45 year-old female with no significant past medical history presented to the ED for evaluation of failed outpatient therapy for right lower extremity cellulitis. Patient was initially seen in the ED on 08/20/16 Observing at 34 days history of right lower stomach erythema and pain which was rated at a time 6/10 in intensity, she was discharged home on Bactrim 7 days patient completed without any significant improvement. She will return to the ED on 08/25/16 and was discharged home on clindamycin for total 7 days. However patient states after completing her therapy she has had no improvement and reports significant right lower extremity pain and worsening erythema. Vision also reported some complaint of chills and subjective fever. She denies any GI bleed CBC/BMP: 09/01/16 0630 09/03/16 0835 Significant Findings Laboratory Tests Test 09/01/16 09/02/16 06:30 03:45 Hemoglobin 11.1 GM/DL (11.6-15.3) Hematocrit 32.8 % (35.0-46.0) Mean Corpuscular Volume 77.8 FL (80.0-100.0) Mean Corpuscular Hemoglobin 26.3 PG (27.0-34.0) Monocytes (%) (Auto) 8.7 % (0.0-8.0) Sodium Level 135 MEQ/L (136-145) Albumin 3.0 GM/DL (3.4-5.0) Vancomycin Level Trough 15.4 MCG/ML (5.0-10.0) PE at Discharge GENERAL: NAD SKIN: Warm and dry. Improving right lower extremity redness and erythema HEAD: Normocephalic. EYES: No scleral icterus. No injection or drainage. NECK: Supple, trachea midline. No JVD or lymphadenopathy. CARDIOVASCULAR: Regular rate and rhythm without murmurs, gallops, or rubs. RESPIRATORY: Breath sounds equal bilaterally. No accessory muscle use. GASTROINTESTINAL: Abdomen soft, non-tender, nondistended. MUSCULOSKELETAL: No cyanosis, or edema. BACK: Nontender without obvious deformity. No CVA tenderness. Hospital Course Patient admitted secondary to right lower extremity cellulitis after failing outpatient therapy, she was started on IV antibiotics and monitoring of culture. DVT was ruled out on admission. Pain management was provided accordingly. She was also started on ferrous sulfate secondary to iron deficiency anemia. Patient's condition improved prior to discharge and vitals remained stable. She was advised to finish clindamycin as previously prescribed to her Pt Condition on Discharge: Stable Discharge Disposition: Discharge Home Discharge Time: <= 30 minutes Discharge Instructions DIET: Follow Instructions for: Heart Healthy Diet Activities you can perform: Regular-No Restrictions Follow up Referrals: PCP Follow-up - 1 Week New Medications: Ferrous Sulfate (Ferrous Sulfate) 325 Mg Tab 325 MG PO DAILY Infection #30 TAB Lactobacillus Acidophilus (Acidophilus/l-Sporogenes) 1 Tab Tab 1 TAB PO Q12HR Infection #60 TAB Continued Medications: Clindamycin (Clindamycin) 150 Mg Cap 450 MG PO Q8HR Infection Days 14 Ref 0 CAP Tramadol (Tramadol) 50 Mg Tab 50 MG PO Q8H PRN PAIN SCALE 6 TO 10 #20 Ref 0 TAB Atul Herrmann MD September 03, 2016 11:50
[2016-09-03] MEDS ORDERED: VANCOMYCIN INJ 1,750 MG in SODIUM CHLORID 0.9% 500 ML INJ 500 ML IV SCH ×4 (18:00)
[2016-09-05] MEDS ORDERED: PHARMACY ORDERED LAB ONE (05:45)
== END 2016-09-03 13:02 | disposition home or self-care (01) | DRG 603 ==
LOC: NEPC 08:58 → NEDA 10:32 → N05A 11:53
PROVIDERS: ADMIT Hospitalist; ATTEND Hospitalist
DX: L03.115 Cellulitis of right lower limb (principal); D50.9 Iron deficiency anemia, unspecified; R73.01 Impaired fasting glucose
CPT/HCPCS: 76937; 80048; 80053; 80202; 82565; 83036; 83540; 83550; 85025; 87040; 93971; 96374; 96375; J0696; J1644; J1885; J3370; J7040; J7050

== ENCOUNTER 2017-07-24 14:25 | Emergency (ER) | payer MEDICAID ==
[~2017-07-24] VITALS: Ht 162.6 cm; Wt 90.0 kg
[~2017-07-24 14:25] MED LIST changes: -BACT800T5 PO; +CLIN150C14 PO; -CLIN1CAP5 PO; +FERR325T PO; +LACT PO
[2017-07-24 14:35] VITALS: BP 152/89; PULSE 84; RESP 16; TEMP 97.2; O2SAT 100
--- NOTE | 2017-07-24 18:09 | PD ---
HPI Chief Complaint: Skin Problem Time Seen by Provider: 17:49 Travel History International Travel<30 days: No Contact w/Intl Traveler<30days: No Traveled to known affect area: No History of Present Illness HPI 46 year female presents emergency department for evaluation of which she believes is left lower extremity cellulitis that has worsened over the last week. Says she was admitted a couple of months ago for cellulitis which required admission for 1 week with IV abx therapy. She is concerned that she may develop this severe cellulitis again which is why she presents emergency department today. She denies trauma, bites, any other inciting event. Says that the left lower extremity is painful especially with palpation. Mild in severity. Aching. She denies any wounds. she denies fever, chills, chest pain , SOB. Denies history of clots, cancer, recent travel, surgery, injury. PFSH Past Medical History Cancer: No Cardiovascular Problems: No Cerebrovascular Accident: Yes Diminished Hearing: No Endocrine: No Gastrointestinal Disorders: No Genitourinary: No Immune Disorder: No Implanted Vascular Access Dvce: No Musculoskeletal: Yes Neurologic: No Psychiatric: No Reproductive: Yes Respiratory: No Integumentary: Yes (CELLULITIS) ?: Not LMP: 07/18/17 : 2 Para: 2 Past Surgical History Abdominal Surgery: Yes (APPENDECTOMY) Appendectomy: Yes Cardiac Surgery: No Ear Surgery: No Endocrine Surgery: No Eye Surgery: No Genitourinary Surgery: No Gynecologic Surgery: No Neurologic Surgery: No Oral Surgery: No Thoracic Surgery: No Tonsillectomy: Yes Other Surgery: Yes Social History Alcohol Use: No Tobacco Use: No Substance Use: No Allergies-Medications (Allergen,Severity, Reaction): Coded Allergies: No Known Allergies (Verified Allergy, Unknown, 07/24/17) Reported Meds & Prescriptions Reported Meds & Active Scripts Active Clindamycin (Clindamycin HCl) 150 Mg Cap 450 Mg PO Q6H 10 Days Acidophilus/l-Sporogenes (Lactobacillus Acidophilus) 1 Tab Tab 1 Tab PO Q12HR Ferrous Sulfate 325 Mg Tab 325 Mg PO DAILY Tramadol (Tramadol HCl) 50 Mg Tab 50 Mg PO Q8H PRN Clindamycin (Clindamycin HCl) 150 Mg Cap 450 Mg PO Q8HR 14 Days Review of Systems Except as stated in HPI: all other systems reviewed are Neg Physical Exam Narrative GENERAL: Well-developed, well-nourished in no apparent distress, resting comfortably in bed SKIN: Focused skin assessment warm/dry. Left lower extremity-lower calf with faint erythema. Mild edema. No lymph angiopathic spread. Neurovascularly intact HEAD: Atraumatic. Normocephalic. EYES: Pupils equal and round. No scleral icterus. No injection or drainage. ENT: No nasal bleeding or discharge. Mucous membranes pink and moist. NECK: Trachea midline. No JVD. No lymphadenopathy CARDIOVASCULAR: Regular rate and rhythm. No murmur appreciated. RESPIRATORY: No accessory muscle use. Clear to auscultation. Breath sounds equal bilaterally. GASTROINTESTINAL: Abdomen soft, non-tender, nondistended. Hepatic and splenic margins not palpable. No CVA tenderness MUSCULOSKELETAL: No obvious deformities. No clubbing. No cyanosis. No edema. Left lower extremity tender to palpation of the calf NEUROLOGICAL: Awake and alert. No obvious cranial nerve deficits. Motor grossly within normal limits. Normal speech. PSYCHIATRIC: Appropriate mood and affect; insight and judgment normal. Data Data Last Documented VS Vital Signs Date Time Temp Pulse Resp B/P (MAP) Pulse Ox O2 Delivery O2 Flow Rate FiO2 07/24/17 14:35 97.2 84 16 152/89 (110) 100 Orders Orders Basic Metabolic Panel (Bmp) (07/24/17 18:03) Complete Blood Count With Diff (07/24/17 18:03) Sodium Chloride 0.9% Flush (Ns Flush) (07/24/17 18:15) Clindamycin Inj (Cleocin Inj) (07/24/17 18:15) Act Partial Throm Time (Ptt) (07/24/17 18:03) Prothrombin Time / Inr (Pt) (07/24/17 18:03) Us Leg Venous Doppler (07/24/17 ) Ed Discharge Order (07/24/17 19:40) Labs Laboratory Tests Test 07/24/17 18:40 White Blood Count 7.9 TH/MM3 Red Blood Count 4.62 MIL/MM3 Hemoglobin 13.0 GM/DL Hematocrit 38.4 % Mean Corpuscular Volume 83.0 FL Mean Corpuscular Hemoglobin 28.1 PG Mean Corpuscular Hemoglobin Concent 33.8 % Red Cell Distribution Width 14.4 % Platelet Count 361 TH/MM3 Mean Platelet Volume 8.8 FL Neutrophils (%) (Auto) 54.6 % Lymphocytes (%) (Auto) 36.8 % Monocytes (%) (Auto) 7.0 % Eosinophils (%) (Auto) 0.9 % Basophils (%) (Auto) 0.7 % Neutrophils # (Auto) 4.3 TH/MM3 Lymphocytes # (Auto) 2.9 TH/MM3 Monocytes # (Auto) 0.6 TH/MM3 Eosinophils # (Auto) 0.1 TH/MM3 Basophils # (Auto) 0.1 TH/MM3 CBC Comment DIFF FINAL Differential Comment Prothrombin Time 9.9 SEC Prothromb Time International Ratio 1.0 RATIO Activated Partial Thromboplast Time 26.1 SEC Blood Urea Nitrogen 11 MG/DL Creatinine 0.72 MG/DL Random Glucose 98 MG/DL Calcium Level 8.7 MG/DL Sodium Level 136 MEQ/L Potassium Level 4.0 MEQ/L Chloride Level 103 MEQ/L Carbon Dioxide Level 26.3 MEQ/L Anion Gap 7 MEQ/L Estimat Glomerular Filtration Rate 87 ML/MIN MDM Medical Decision Making Medical Screen Exam Complete: Yes Emergency Medical Condition: Yes Differential Diagnosis Left lower extremity DVT, cellulitis, erysipelas Narrative Course Because of patient's history, ordered labs to rule out sepsis this patient does have a history of this. Ultrasound ordered at the recommendation of my attending, Dr. Rojas. Labs appears stable. Ultrasound negative for DVT. Patient will receive Clindamycin 600 mg IV in the emergency department today. Discharge with clindamycin 450 mg 4 times daily. Patient to follow-up with primary care physician for further treatment and evaluation. Return to the emergency department for worsening or persistent symptoms. Diagnosis Primary Impression: Cellulitis Qualified Codes: L03.116 - Cellulitis of left lower limb Referrals: Primary Care Physician Patient Instructions: Cellulitis (ED), General Instructions Additional Instructions: Take all medication as prescribed. Follow-up with primary care physician for further evaluation of your recurrent cellulitis. If you develop fever, chills or spread of your infection return to the emergency department immediately. Scripts Clindamycin (Clindamycin) 150 Mg Cap 450 MG PO Q6H for Infection for 10 Days, #120 CAP 0 Refills Prov: Manish Rojas MD 07/24/17 Disposition: 01 DISCHARGE HOME Condition: Stable Sunni Trotter Jul 24, 2017 18:09
[2017-07-24] MEDS ORDERED: SODIUM CHLORIDE 0.9% FLUSH 10 ML FLUSH IVF PRN (18:15)
[2017-07-24] MEDS ORDERED: CLINDAMYCIN INJ 600 MG in SODIUM CHLORIDE 0.9% INJ 100 ML IV ONE (18:15)
--- NOTE | 2017-07-24 18:41 | RADRPT ---
EXAM DATE/TIME: 07/24/2017 19:19 [facility] COMPARISON: No previous studies available for comparison. INDICATIONS : Left leg pain. MEDICAL HISTORY : CVA. Cellulitis. SURGICAL HISTORY : Tonsillectomy. Appendectomy. ENCOUNTER: Initial ACUITY: 1 day PAIN SCORE: 0/10 LOCATION: Left leg. TECHNIQUE: Venous ultrasound of the leg was performed from the inguinal ligament to the proximal calf. Real-pravin e, color Doppler and spectral tracing, compression and augmentation techniques were used. FINDINGS: There is normal compressibility of the deep venous system from the inguinal region to the proximal ca lf. No echogenic clot is seen in the lumen of the common femoral, femoral, popliteal, and posterior tibial veins. There is a normal response of the venous system to proximal and distal augmentation an d respiration. CONCLUSION: No DVT. Santhosh Bolton MD on July 24, 2017 at 18:38 Board Certified Radiologist. This report was verified electronically.
--- NOTE | 2017-07-24 18:53 | PD ---
Physical Exam Date Seen by Provider: Jul 24, 2017 Time Seen by Provider: 18:00 Narrative I, Dr. Rojas, have reviewed the advance practice practitioner's documentation and am in agreement, met with the patient face to face, made the diagnosis, and the medical decision making was done by me. *My assessment and Findings: Patient seen and evaluated with PA, please see PA notes for further details, coming in with pain in the leg, previous history of cellulitis in those areas, having tenderness on palpation of the calf. Ultrasound shows no signs of DVT. At this point, suspect that this is more cellulitis and DVT considering the history and plan would be to give her antibiotics, to be followed up as an outpatient. Data Data Last Documented VS Vital Signs Date Time Temp Pulse Resp B/P (MAP) Pulse Ox O2 Delivery O2 Flow Rate FiO2 07/24/17 14:35 97.2 84 16 152/89 (110) 100 Orders Orders Basic Metabolic Panel (Bmp) (07/24/17 18:03) Complete Blood Count With Diff (07/24/17 18:03) Sodium Chloride 0.9% Flush (Ns Flush) (07/24/17 18:15) Clindamycin Inj (Cleocin Inj) (07/24/17 18:15) Act Partial Throm Time (Ptt) (07/24/17 18:03) Prothrombin Time / Inr (Pt) (07/24/17 18:03) Us Leg Venous Doppler (07/24/17 ) [facility] Medical Record Reviewed: Yes Supervised Visit with LAURE: Yes Diagnosis Primary Impression: Cellulitis Disposition: 01 DISCHARGE HOME Condition: Stable Manish Rojas MD Jul 24, 2017 18:53
[2017-07-24 19:01] LABS: AUTOMATED NEUTROPHIL # 4.3 TH/MM3 (1.8-7.7); BASOPHIL # 0.1 TH/MM3 (0-0.2); BASOPHIL % 0.7 % (0.0-2.0); EOSINOPHIL # 0.1 TH/MM3 (0-0.4); EOSINOPHIL % 0.9 % (0.0-4.0); HEMATOCRIT 38.4 % (35.0-46.0); LYMPH % 36.8 % (9.0-44.0); LYMPHOCYTE # 2.9 TH/MM3 (1.0-4.8); MEAN CORPUSCULAR HEMOGLOBIN 28.1 PG (27.0-34.0); MEAN CORPUSCULAR HGB CONC 33.8 % (32.0-36.0); MEAN PLATELET VOLUME 8.8 FL (7.0-11.0); MONOCYTE # 0.6 TH/MM3 (0-0.9); NEUT % 54.6 % (16.0-70.0); PLATELET COUNT 361 TH/MM3 (150-450); RED BLOOD COUNT 4.62 MIL/MM3 (4.00-5.30); RED CELL DISTRIBUTION WIDTH 14.4 % (11.6-17.2); WHITE BLOOD COUNT 7.9 TH/MM3 (4.0-11.0)
[2017-07-24 19:27] LABS: PROTHROMBIN TIME - PATIENT 9.9 SEC (9.8-11.6)
[2017-07-24 19:33] LABS: BICARBONATE 26.3 MEQ/L (21.0-32.0); CALCIUM 8.7 MG/DL (8.5-10.1); CREATININE 0.72 MG/DL (0.50-1.00)
[2017-07-24] MEDS ORDERED: CLIN150C14 PO (19:40)
== END 2017-07-24 19:59 | disposition home or self-care (01) ==
LOC: NEPC 14:25
DX: L03.116 Cellulitis of left lower limb (principal); M79.662 Pain in left lower leg; Z86.73 Personal history of transient ischemic attack (TIA), and cerebral infarction without residual deficits
CPT/HCPCS: 80048; 85025; 85610; 85730; 93971; 96365